=== PATIENT | female | born 1955 | race Caucasian/White ===

== ENCOUNTER 2018-12-18 16:39 | Emergency (ER) | payer OTHER ==
--- NOTE | 2018-12-18 17:07 | EDPHY ---
H & P Stated Complaint: RUQ abd pain Time Seen by Provider: 12/18/18 16:58 HPI/ROS: CHIEF COMPLAINT: Chest pain, abdominal pain HISTORY OF PRESENT ILLNESS: Patient presents the ED with a 2 day history of right upper quadrant pain and right lower chest pain. The patient reports the discomfort originates from the right upper quadrant radiates to the back and right shoulder. She denies nausea and her diarrhea. She denies hematuria or dysuria. The patient does have a prior history of cholecystectomy and hysterectomy. Patient takes medications for osteoporosis and hypothyroidism. She denies any history of fall or trauma. She denies additional acute complaints. The patient rates her pain as a 9/10. REVIEW OF SYSTEMS: A comprehensive 10 point review of systems is otherwise negative aside from elements mentioned in the history of present illness. Source: Patient Exam Limitations: No limitations - Personal History Current Tetanus/Diphtheria Vaccine: Yes Current Tetanus Diphtheria and Acellular Pertussis (TDAP): Yes - Medical/Surgical History Hx Asthma: No Hx Chronic Respiratory Disease: No Hx Diabetes: No Hx Cardiac Disease: No Hx Renal Disease: No Hx Cirrhosis: No Hx Alcoholism: No Hx HIV/AIDS: No Hx Splenectomy or Spleen Trauma: No Other PMH: hypothyroid, vaginal CA, osteoporosis - Family History Significant Family History: No pertinent family hx - Social History Smoking Status: Current every day smoker - Physical Exam Exam: General Appearance: Alert, no distress Eyes: Pupils equal and round no pallor or injection ENT, Mouth: Mucous membranes moist Respiratory: There are no retractions, lungs are clear to auscultation Cardiovascular: Regular rate and rhythm Gastrointestinal: Mild tenderness to palpation right upper quadrant Neurological: A&O, normal motor function, normal sensory exam, normal cranial nerves Skin: Warm and dry, no rashes, no fascicular lesion or evidence of shingles noted Musculoskeletal: Neck is supple nontender Extremities: symmetrical, full range of motion Psychiatric: Patient is oriented X 3, there is no agitation Constitutional: Initial Vital Signs Temperature (C) 36.7 C 12/18/18 16:48 Heart Rate 69 12/18/18 16:48 Respiratory Rate 16 12/18/18 16:48 Blood Pressure 129/74 H 12/18/18 16:48 O2 Sat (%) 95 12/18/18 16:48 O2 Delivery Mode Room Air Allergies/Adverse Reactions: No Known Allergies Allergy (Unverified 12/18/18 16:47) Home Medications: Medication Instructions Recorded Calcium 12/18/18 Levothyroxine 12/18/18 Senna 12/18/18 Vitamin D3 12/18/18 Medical Decision Making - Diagnostics EKG Interpretation: EKG: Complete interpretation has been separately recorded in the [facility] archive. Summary impression: Sinus rhythm, rate 66 Imaging Results: Imaging Impressions Abdomen CT 12/18/18 17:53 Impression: Normal postcholecystectomy state. If there is concern for choledocholithiasis, then MRCP should be considered. Results discussed with Dr. Ryan Damon at 18:42 PM. General information for patients regarding this examination can be found at [email or web address]. If you have questions or comments about this report, please contact me at [phone] (hospital) or [phone] (cell). ED Course/Re-evaluation: Patient presents to the ED for evaluation of right-sided abdominal pain and right lower chest wall pain. The patient has no evidence of an obvious rash. She had minimal tenderness on exam. She is status post cholecystectomy. Workup in the emergency department demonstrates no evidence of ischemia on her EKG. Troponin is normal. The patient's D-dimer is negative which I feel excludes pulmonary embolism. Patient was noted to have slightly elevated AST and ALT with normal bilirubin. CT scan of the abdomen pelvis was obtained which demonstrates no evidence of obvious choledocholithiasis, cholangitis, nephrolithiasis or ureterolithiasis. At this point time the etiology of the patient's symptoms are somewhat uncertain. I think it is reasonable to have her attempt a course of NSAIDs. I have asked the patient to follow up with her regular physician at [facility] for a recheck. She should return to the ED for markedly worsening symptoms or other concerns. Re-evaluated the patient again at 7:00 p.m.. I find her abdominal examination benign. I see no evidence of zoster. I have no obvious explanation for her right-sided symptoms but feel that we have excluded serious causes. The patient is comfortable going home. She will be advised to return to the ED for any symptoms which progress. Differential Diagnosis: Differential diagnosis pancreatitis, choledocholithiasis, pulmonary embolism, acute coronary syndrome, pneumonia, obstruction, perforation, zoster - Data Points Laboratory Results: Laboratory Results 12/18/18 17:10 12/18/18 17:10 12/18/18 12/18/18 12/18/18 18:35 17:35 17:11 WBC RBC Hgb POC Hgb 14.6 gm/dL gm/dL (12.6-16.3) Hct POC Hct 43 % % (38-47) MCV MCH MCHC RDW Plt Count MPV Neut % (Auto) Lymph % (Auto) [place] % (Auto) Eos % (Auto) Baso % (Auto) Nucleat RBC Rel Count Absolute Neuts (auto) Absolute Lymphs (auto) Absolute Monos (auto) Absolute Eos (auto) Absolute Basos (auto) Absolute Nucleated RBC Immature Gran % Immature Gran # D-Dimer 0.39 ug/mLFEU ug/mLFEU (0.00-0.50) POC Sodium 142 mEq/L mEq/L (135-145) Sodium POC Potassium 3.8 mEq/L mEq/L (3.3-5.0) Potassium POC Chloride 105 mEq/L mEq/L (97-110) Chloride Carbon Dioxide POC Total CO2 23 mEq/L mEq/L (22-31) Anion Gap POC BUN 12 mg/dL mg/dL (7-23) BUN Creatinine POC Creatinine 0.7 mg/dL mg/dL (0.6-1.0) Estimated GFR Glucose POC Glucose 117 mg/dL H mg/dL (70-100) Calcium Total Bilirubin Conjugated Bilirubin Unconjugated Bilirubin AST ALT Alkaline Phosphatase POC Troponin I Total Protein Albumin Lipase Urine Color YELLOW Urine Appearance CLEAR Urine pH 7.0 (5.0-7.5) Ur Specific [place] 1.020 (1.002-1.030) Urine Protein NEGATIVE (NEGATIVE) Urine Ketones NEGATIVE (NEGATIVE) Urine Blood NEGATIVE (NEGATIVE) Urine Nitrate NEGATIVE (NEGATIVE) Urine Bilirubin NEGATIVE (NEGATIVE) Urine Urobilinogen NEGATIVE EU EU (0.2-1.0) Ur Leukocyte Esterase NEGATIVE (NEGATIVE) Urine Glucose NEGATIVE (NEGATIVE) 12/18/18 12/18/18 12/18/18 17:10 17:10 17:10 WBC 9.15 10^3/uL 10^3/uL (3.80-9.50) RBC 4.60 10^6/uL 10^6/uL (4.18-5.33) Hgb 14.0 g/dL g/dL (12.6-16.3) POC Hgb Hct 42.9 % % (38.0-47.0) POC Hct MCV 93.3 fL fL (81.5-99.8) MCH 30.4 pg pg (27.9-34.1) MCHC 32.6 g/dL g/dL (32.4-36.7) RDW 14.0 % % (11.5-15.2) Plt Count 287 10^3/uL 10^3/uL (150-400) MPV 9.3 fL fL (8.7-11.7) Neut % (Auto) 81.0 % H % (39.3-74.2) Lymph % (Auto) 12.3 % L % (15.0-45.0) [place] % (Auto) 5.1 % % (4.5-13.0) Eos % (Auto) 0.9 % % (0.6-7.6) Baso % (Auto) 0.5 % % (0.3-1.7) Nucleat RBC Rel Count 0.0 % % (0.0-0.2) Absolute Neuts (auto) 7.40 10^3/uL H 10^3/uL (1.70-6.50) Absolute Lymphs (auto) 1.13 10^3/uL 10^3/uL (1.00-3.00) Absolute Monos (auto) 0.47 10^3/uL 10^3/uL (0.30-0.80) Absolute Eos (auto) 0.08 10^3/uL 10^3/uL (0.03-0.40) Absolute Basos (auto) 0.05 10^3/uL 10^3/uL (0.02-0.10) Absolute Nucleated RBC 0.00 10^3/uL 10^3/uL (0-0.01) Immature Gran % 0.2 % % (0.0-1.1) Immature Gran # 0.02 10^3/uL 10^3/uL (0.00-0.10) D-Dimer POC Sodium Sodium 139 mEq/L mEq/L (135-145) POC Potassium Potassium 4.1 mEq/L mEq/L (3.5-5.2) POC Chloride Chloride 108 mEq/L mEq/L (97-110) Carbon Dioxide 23 mEq/l mEq/l (22-31) POC Total CO2 Anion Gap 8 mEq/L mEq/L (6-14) POC BUN BUN 14 mg/dL mg/dL (7-23) Creatinine 0.7 mg/dL mg/dL (0.6-1.0) POC Creatinine Estimated GFR > 60 Glucose 114 mg/dL H mg/dL (70-100) POC Glucose Calcium 9.2 mg/dL mg/dL (8.5-10.4) Total Bilirubin 0.4 mg/dL mg/dL (0.1-1.4) Conjugated Bilirubin 0.4 mg/dL mg/dL (0.0-0.5) Unconjugated Bilirubin 0.0 mg/dL mg/dL (0.0-1.1) AST 140 IU/L H IU/L (14-46) ALT 96 IU/L H IU/L (9-52) Alkaline Phosphatase 157 IU/L H IU/L (38-126) POC Troponin I 0.00 ng/mL ng/mL (0.00-0.08) Total Protein 7.2 g/dL g/dL (6.3-8.2) Albumin 4.3 g/dL g/dL (3.5-5.0) Lipase 294 IU/L IU/L (23-300) Urine Color Urine Appearance Urine pH Ur Specific [place] Urine Protein Urine Ketones Urine Blood Urine Nitrate Urine Bilirubin Urine Urobilinogen Ur Leukocyte Esterase Urine Glucose Point of Care Test Results: Chemistry 12/18/18 12/18/18 17:11 17:10 POC Sodium 142 mEq/L mEq/L (135-145) POC Potassium 3.8 mEq/L mEq/L (3.3-5.0) POC Chloride 105 mEq/L mEq/L (97-110) POC Total CO2 23 mEq/L mEq/L (22-31) POC BUN 12 mg/dL mg/dL (7-23) POC Creatinine 0.7 mg/dL mg/dL (0.6-1.0) POC Glucose 117 mg/dL H mg/dL (70-100) POC Troponin I 0.00 ng/mL ng/mL (0.00-0.08) ISTAT H&H 12/18/18 17:11 POC Hgb 14.6 gm/dL gm/dL (12.6-16.3) POC Hct 43 % % (38-47) Departure - Departure Disposition: Home, Routine, Self-Care Clinical Impression: Abdominal pain Condition: Good Instructions: Acute Abdominal Pain (ED) Additional Instructions: 1. Take Ibuprofen or Motrin 600 mg by mouth three times a day. 2. Sometimes we are unable to diagnose an obvious cause of abdominal pain in the Emergency Department. Based upon our evaluation today, we see no obvious explanation for your pain. Because more serious conditions can be difficult to diagnose early in the course of their presentation, we ask that you return to the Emergency Department in 8-12 hours for a recheck if you are still having pain. This is necessary to exclude the development of a more serious condition such as appendicitis or other intra-abdominal emergency. In the event your pain markedly increases before that time or you develop intractable vomiting or fever return to the Emergency Department immediately. Referrals: [facility],. [Clinic] - As per Instructions
[2018-12-18 17:18] LABS: PLATELET COUNT 287 10^3/uL (150-400)
--- NOTE | 2018-12-18 17:55 | CPEKG ---
Test Reason : OPEN Blood Pressure : / mmHG Vent. Rate : 066 BPM Atrial Rate : 065 BPM P-R Int : 169 ms QRS Dur : 094 ms QT Int : 444 ms P-R-T Axes : 028 020 006 degrees QTc Int : 466 ms Sinus rhythm Abnormal R-wave progression, early transition Borderline T abnormalities, anterior leads Confirmed by Peterson Damon ([id number]) on 12/18/2018 5:54:47 PM Referred By: Peterson Damon Confirmed By:Peterson Damon
[2018-12-18] MEDS ORDERED: IOHEXOL 300 mgI/ML (OMNIPAQUE) 150 ML BTL IV ONE (18:02)
[2018-12-18 19:40] VITALS: BP 124/63
== END 2018-12-18 19:40 | disposition home or self-care (01) ==
DX: R10.11 Right upper quadrant pain (principal); R07.9 Chest pain, unspecified; E03.9 Hypothyroidism, unspecified; Z79.899 Other long term (current) drug therapy
CPT/HCPCS: 82435-PO; 82565-PO; 82947-PO; 84132-PO; 84295-PO; 84484-ER; 84520-PO; 85014-ER; Q9967

== ENCOUNTER 2018-12-25 12:10 | Emergency (ER) | payer OTHER ==
[2018-12-25 12:27] VITALS: BP 162/82
--- NOTE | 2018-12-25 13:23 | EDPHY ---
H & P Time Seen by Provider: 12/25/18 13:16 HPI/ROS: Chief complaint. Headache, eye pain HPI. Patient is a 63-year-old female presents emergency department with 4 day history of right forehead headache. It aches and is quite painful. She has pain around the right eye. She is not sure if she has eye pain at self but it hurts to close her eyes and open them widely. No drainage from the eye. No fever. No trauma. She now also developed blisters to the right forehead. No chest pain or shortness of breath. Recent visit to the emergency department for chest pain and abdominal pain ROS 10 systems were reviewed and negative with the exception of the elements mentioned in the history of present illness Past Medical/Surgical History: Hypothyroid, vaginal cancer, osteoporosis, cholecystectomy, hysterectomy Social History: , nonsmoker, no alcohol Smoking Status: Former smoker Physical Exam: General Appearance: Alert well-developed female moderate distress vital signs are stable Eyes: Pupils equal and round no pallor or injection. ENT, Mouth: Mucous membranes are moist. Respiratory: There are no retractions, lungs are clear to auscultation. Cardiovascular: Regular rate and rhythm. Gastrointestinal: Abdomen is soft and nontender, no masses, bowel sounds normal. Neurological: Awake and alert, sensory and motor exams grossly normal. Skin: Vesicular rash to the right forehead in the V1 dermatome. There is no rash to the tip of her nose Musculoskeletal: Neck is supple nontender. Extremities symmetrical, full range of motion. Psychiatric: Patient is oriented X 3, there is no agitation. Constitutional: Initial Vital Signs Temperature (C) 36.6 C 12/25/18 12:23 Heart Rate 78 12/25/18 12:23 Respiratory Rate 16 12/25/18 12:23 Blood Pressure 162/82 H 12/25/18 12:23 O2 Sat (%) 91 L 12/25/18 12:23 O2 Delivery Mode Room Air Allergies/Adverse Reactions: No Known Allergies Allergy (Verified 12/25/18 12:27) Home Medications: Medication Instructions Recorded Calcium 12/18/18 Levothyroxine 12/18/18 Senna 12/18/18 Vitamin D3 12/18/18 ALENDRONATE SODIUM 12/25/18 Fexofenadine HCl 12/25/18 Fluticasone Furoate 12/25/18 Valacyclovir HCl [Valtrex] 1,000 mg PO TID #21 tab 12/25/18 oxyCODONE/APAP 5/325 [Percocet 1 tab PO Q4-6PRN PRN #14 tab 12/25/18 5/325] Medical Decision Making Procedures: Slit-lamp exam performed by me with flourescein and alcaine. No evidence for dendritic lesions. Cornea appears normal. It is clear and not steamy in the anterior chamber. ED Course/Re-evaluation: Valtrex and Percocet in the ED Patient and I discussed the diagnosis, treatment plan including criteria for return importance of follow-up and further evaluation. She expresses understanding and agreement Differential Diagnosis: Herpes zoster in V1 dermatome. No evidence for ocular involvement. Departure - Departure Disposition: Home, Routine, Self-Care Clinical Impression: Herpes zoster Qualifiers: Herpes zoster complications: without complications Qualified Code(s): B02.9 - Zoster without complications Condition: Good Instructions: Shingles (ED) Additional Instructions: All tracks 1 pill three times daily to treat the infection Percocet 1/2 to 1 pill every 4 hr as needed for pain. May use ibuprofen 600 mg every 6 hr in addition. Good hand washing precautions. Return for eye pain or change in vision Re-evaluation in 2-[address] days at [facility] or Dr. Joya Referrals: JOIE JOYA [Primary Care Provider] - As per Instructions [facility] [Outside] - 2-3 days without fail Prescriptions: oxyCODONE/APAP 5/325 [Percocet 5/325] 1 tab PO Q4-6PRN PRN #14 tab PRN Reason: Pain, Moderate Valacyclovir HCl [Valtrex] 1,000 mg PO TID #21 tab Print Language: English
[2018-12-25] MEDS ORDERED: PROPARACAINE/FLUORESCEIN SOD 5 ML OPHT.BTL ONE (13:34)
[2018-12-25] MEDS ORDERED: OXYCODONE/APAP 5/325 TAB PO ONE (13:46)
[2018-12-25] MEDS ORDERED: valACYclovir 500 MG TAB PO ONE (13:46)
== END 2018-12-25 14:07 | disposition home or self-care (01) ==
DX: B02.9 Zoster without complications (principal); E03.9 Hypothyroidism, unspecified; M81.0 Age-related osteoporosis without current pathological fracture; Z90.710 Acquired absence of both cervix and uterus; Z90.49 Acquired absence of other specified parts of digestive tract; Z85.44 Personal history of malignant neoplasm of other female genital organs